=== PATIENT | female | born 1970 | race Caucasian/White ===

== ENCOUNTER → 2017-10-02 | Outpatient (REF) | payer OTHER ==
[2017-10-02 07:56] LABS: HEMATOCRIT 40.1 % (37.0-47.0); HEMOGLOBIN 13.1 g/dL (12.5-16.0); MEAN CELL VOLUME 92 fl (78-100); MEAN CORPUSCULAR HEMOGLOBIN 30 pg (27-31); MEAN CORPUSCULAR HGB CONC 33 g/dL (33-37); MEAN PLATELET VOLUME 10.3 fl (7.4-10.4); PLATELET COUNT 185 K/mm3 (130-400); RED BLOOD COUNT 4.37 M/mm3 (4.10-5.30); RED CELL DISTRIBUTION WIDTH 12.2 % (11.5-14.5); WHITE BLOOD COUNT 5.3 K/mm3 (4.8-10.8)
[2017-10-02 08:31] LABS: ALBUMIN 3.7 g/dL (3.5-5.0); CALCIUM 9.1 mg/dL (8.4-10.2); POTASSIUM 4.1 mmol/L (3.6-5.0); TOTAL BILIRUBIN 0.8 mg/dL (0.2-1.3); TOTAL PROTEIN 6.3 g/dL (6.3-8.2)
[2017-10-02 08:46] LABS: LYMPHOCYTE 33 % (20-51); MONOCYTE 8 % (3-10); NEUTROPHILS 50 % (42-75)
== END ==
LOC: LAB 07:02 → EDSTATUS 07:04
PROVIDERS: Nurse Practitioner Family
DX: Z13.220 Encounter for screening for lipoid disorders (principal); Z01.419 Encounter for gynecological examination (general) (routine) without abnormal findings

== ENCOUNTER → 2017-12-02 | Outpatient (CLI) | payer OTHER | LOC: MAMMO 16:00 | DX: Z12.31 Encounter for screening mammogram for malignant neoplasm of breast (principal); Z88.2 Allergy status to sulfonamides ==

== ENCOUNTER → 2019-10-31 | Outpatient (CLI) | payer OTHER | LOC: MAMMO 10:00 | DX: Z12.31 Encounter for screening mammogram for malignant neoplasm of breast (principal); Z12.11 Encounter for screening for malignant neoplasm of colon ==

== ENCOUNTER → 2021-04-16 | Outpatient (CLI) | payer OTHER | LOC: MAMMO 15:39 | DX: Z12.31 Encounter for screening mammogram for malignant neoplasm of breast (principal) ==

== ENCOUNTER → 2021-04-22 | Outpatient (CLI) | payer OTHER | LOC: RAD 07:49 | DX: S22.32XA Fracture of one rib, left side, initial encounter for closed fracture (principal) | CPT/HCPCS: Q9967 ==

== ENCOUNTER → 2022-10-25 | Outpatient (CLI) | payer BC ==
[2022-10-25 08:00] LABS: BASO # 0.02 K/mm3 (0.02-0.10); EOS # 0.16 K/mm3 (0.04-0.40); EOS % 3.5 % (1.0-5.0); HEMATOCRIT 40.9 % (37.0-47.0); HEMOGLOBIN 13.5 g/dL (12.5-16.0); LYMPH# 2.01 K/mm3 (1.50-4.00); MEAN CELL VOLUME 92 fl (78-100); MEAN CORPUSCULAR HEMOGLOBIN 30 pg (27-31); MEAN CORPUSCULAR HGB CONC 33 g/dL (33-37); MEAN PLATELET VOLUME 9.1 fl (7.4-10.4); NEU # 2.03 K/mm3 (1.40-6.50); PLATELET COUNT 200 K/mm3 (130-400); RED BLOOD COUNT 4.45 M/mm3 (4.10-5.30); RED CELL DISTRIBUTION WIDTH 12.2 % (11.5-14.5); WHITE BLOOD COUNT 4.5 K/mm3 (4.8-10.8)
[2022-10-25 08:10] LABS: ALBUMIN 4.4 g/dL (3.5-5.0); POTASSIUM 4.2 mmol/L (3.5-5.1)
[2022-10-25 08:11] LABS: CALCIUM 9.5 mg/dL (8.3-10.5)
[2022-10-25 08:12] LABS: TOTAL PROTEIN 7.7 g/dL (6.4-8.3)
[2022-10-27 08:48] LABS: FOLLICLE STIMULATING HORMONE 73.9 mIU/mL (()); LUTENIZING HORMONE 28.1 mIU/mL (()); PROGESTERONE 0.1 ng/mL (())
== END ==
LOC: LAB 07:42
PROVIDERS: Physician Assistant
DX: Z00.00 Encounter for general adult medical examination without abnormal findings (principal); Z12.31 Encounter for screening mammogram for malignant neoplasm of breast; Z13.220 Encounter for screening for lipoid disorders; Z13.29 Encounter for screening for other suspected endocrine disorder; K90.9 Intestinal malabsorption, unspecified; R73.9 Hyperglycemia, unspecified; N95.1 Menopausal and female climacteric states

== ENCOUNTER → 2024-02-10 | Outpatient (CLI) | payer BC | LOC: RAD 15:43 | DX: Z12.31 Encounter for screening mammogram for malignant neoplasm of breast (principal) ==

== ENCOUNTER → 2024-02-10 | Outpatient (CLI) | payer BC ==
[2024-02-10 07:14] LABS: BASO # 0.04 K/mm3 (0.02-0.10); EOS # 0.41 K/mm3 (0.04-0.40); EOS % 6.8 % (1.0-5.0); HEMOGLOBIN 13.2 g/dL (12.5-16.0); LYMPH# 2.22 K/mm3 (1.50-4.00); MEAN CELL VOLUME 93 fl (78-100); MEAN CORPUSCULAR HEMOGLOBIN 30 pg (27-31); MEAN CORPUSCULAR HGB CONC 32 g/dL (33-37); MEAN PLATELET VOLUME 9.1 fl (7.4-10.4); MONO # 0.31 K/mm3 (0.20-0.80); NEU # 3.02 K/mm3 (1.40-6.50); PLATELET COUNT 222 K/mm3 (130-400); RED BLOOD COUNT 4.41 M/mm3 (4.10-5.30); RED CELL DISTRIBUTION WIDTH 12.2 % (11.5-14.5); WHITE BLOOD COUNT 6.1 K/mm3 (4.8-10.8)
[2024-02-10 07:24] LABS: ALBUMIN 3.9 g/dL (3.5-5.0)
[2024-02-10 07:25] LABS: CALCIUM 9.2 mg/dL (8.3-10.5)
[2024-02-10 07:26] LABS: TOTAL PROTEIN 6.1 g/dL (6.4-8.3)
[2024-02-10 07:28] LABS: TOTAL BILIRUBIN 0.6 mg/dL (0.2-1.2)
== END ==
LOC: LAB 07:02
PROVIDERS: Physician Assistant
DX: E78.2 Mixed hyperlipidemia (principal); K90.9 Intestinal malabsorption, unspecified; R53.83 Other fatigue; R73.9 Hyperglycemia, unspecified